=== PATIENT | male | born 1965 | race Caucasian/White ===

== ENCOUNTER → 2016-11-23 | Day surgery (SDC) | payer BC ==
[2016-11-08 15:22] VITALS: Ht 182.9 cm; Wt 129.9 kg
--- NOTE | 2016-11-08 15:57 | PAT Medication Instructions ---
Service Date Nov 08, 2016. Current Home Medication List Lisinopril (Zestril), 20 MG PO QPM Naproxen (Aleve), 440 MG PO PRN Simvastatin (Zocor), 20 MG PO QPM Medication Instructions For Your Scheduled Surgery - Check with surgeon for instructions: Naproxen (Aleve), 440 MG PO PRN - Hold the following medications as scheduled the night before surgery: Lisinopril (Zestril), 20 MG PO QPM - Take the following medications as scheduled the night before surgery: Simvastatin (Zocor), 20 MG PO QPM If you have any questions please call us at [phone] (Kassidy López PA-C) or [phone] or [phone]
[2016-11-08 16:27] LABS: HEMATOCRIT 43.6 % (42-52); MEAN CELL VOLUME 86.7 fL (80-100); MEAN CORPUSCULAR HEMOGLOBIN 30.4 pg (25-34); MEAN CORPUSCULAR HGB CONC 35.1 g/dl (32-36); MEAN PLATELET VOLUME 9.4 fL (7.4-10.4); PLATELET COUNT 223 K/uL (130-400); RED BLOOD COUNT 5.03 M/uL (4.7-6.1); WHITE BLOOD COUNT 6.13 K/uL (4.8-10.8)
--- NOTE | 2016-11-08 16:51 | DIAGNOSTIC IMAGING REPORT ---
CHEST PREADMISSION(PA/LAT) HISTORY: Preop. COMPARISON: None. FINDINGS: There are low lung volumes. The heart is normal in size. The lungs are clear. No pleural effusions. No pneumothorax. IMPRESSION: No acute process. Electronically signed by: Kishor Esteban M.D. 11/08/2016 4:49 PM Dictated Date/Time: 11/08/2016 4:47 PM
[2016-11-08 16:52] LABS: BUN/CREATININE RATIO 24.3 (10-20); CALCIUM 8.8 mg/dl (8.5-10.1); CREATININE 0.95 mg/dl (0.60-1.40); POTASSIUM 4.4 mmol/L (3.5-5.1)
[2016-11-16 17:44] LABS: BUN/CREATININE RATIO 24.3 (10-20); CALCIUM 8.9 mg/dl (8.5-10.1); CREATININE 1.1 mg/dl (0.60-1.40)
[~2016-11-23] VITALS: Ht 182.9 cm; Wt 129.9 kg
[~2016-11-23] MED LIST: ATROPINE SULFATE 0.1 MG/ML 5ML SYR IV PRN; CIPROFLOXACIN 400MG / D5W IV SCH; DEXAMETHASONE SOD INJ 4 MG/ML VIAL IV PRN; DEXAMETHASONE SOD INJ 4 MG/ML VIAL ONE; EpHEDrine SULFATE INJ 50 MG/ML AMP IV PRN; FENTANYL CITRATE INJ 50 MCG/1 ML 2 ML VIAL IV PRN; FENTANYL CITRATE INJ 50 MCG/1 ML 2 ML VIAL ONE; HYDR-5688 PO; KETOROLAC TROMETHAMINE 30 MG/ML VIAL IV. PRN; LABETALOL HCL IV 5 MG/ML 20ML IV PRN; LACTATED RINGER'S 1000ML 1,000 ML IV SCH; LIDOCAINE HCL 2% 2 ML VIAL (20MG/ML) ONE; LISI-725 PO; METOCLOPRAMIDE HCL INJ 5 MG/ML 2 ML VIAL IV PRN; MoRPHine SULFATE 10 MG/ML CARP/VIAL IV PRN; NAPR1TAB9 PO; ONDANSETRON INJ 2 MG/ML 2 ML VIAL IV PRN; ONDANSETRON INJ 2 MG/ML 2 ML VIAL ONE; OXYCODONE/ACETAMINOPHEN 5-325 TAB PO PRN; PHENYLEPHRINE 100MCG/ML 5ML SYR IV PRN; PROPOFOL IV EMULSION 10 MG/ML 20 ML VIAL IV ONE; SIMV20TA2 PO; SODIUM CHLORIDE 0.9% 1000ML 1,000 ML IV SCH
--- NOTE | 2016-11-23 07:46 | History & Physical Bridge Note ---
H&P Re-Evaluation Bridge Note: I have examined the patient, reviewed the History & Physical and in the interval since the performance of the History & Physical I have noted the following changes of clinical significance: No changes noted
--- NOTE | 2016-11-23 08:43 | Discharge Instructions-SurgCtr ---
Discharge Instructions Visit Reason for Visit: Stones Discharge Discharge Diagnosis / Problem: treat kidney stones Discharge Goals Goal(s): Decrease discomfort, Improve function Medications Stopped Medications Name(s): Pt. was told not to take a.m. meds. Activity Recommendations Activity Limitations: resume your previous activity Lifting Limitations: none Exercise/Sports Limitations: none May Resume Sexual Activity: when tolerated Shower/Bathe: no limitations Driving or Machine Use: no limitations (as long as you are off of pain medications) Anesthesia . Post Anesthesia Instructions: If you have had General Anesthesia or IV Sedation: * Do not drive today. * Resume driving when surgeon permits. * Do not make important decisions or sign legal documents today. * Call surgeon for: 1. Temperature elevations greater than 101 degrees F. 2. Uncontrollable pain. 3. Excessive bleeding. 4. Persistent nausea and vomiting. 5. Medication intolerance (nausea, vomiting or rash). * For nausea and vomiting use only clear liquids such as: tea, soda, bouillon until nausea subsides, then gradually increase diet as tolerated. * If you have any concerns or questions, call your surgeon's office. If physician is unavailable and it is an emergency, call 911 or go to the nearest emergency room. . Diet Recommendations Home Diet: no limitations Pending Studies Studies pending at discharge: no Medical Emergencies . Who to Call and When: Medical Emergencies: If at any time you feel your situation is an emergency, please call 911 immediately. . Non-Emergent Contact Non-Emergency issues call your: Urologist Call Non-Emergent contact if: you have a fever, temperature is above 101.5, your pain is not controlled, your pain is worsening . . "Provider Documentation" section prepared by Shreyas Tamayo.
--- NOTE | 2016-11-23 09:19 | [facility] Post Operative Brief Note ---
Immediate Operative Summary Operative Date Nov 23, 2016. Pre-Operative Diagnosis Right Renal Calculi Post-Operative Diagnosis Same Procedure(s) Performed Right Extracorporeal Shock Wave Lithotripsy Surgeon Dr. Keith Dillard Dye Winch Operator Surgeon(s) none Estimated Blood Loss 0 mL Findings Right renal stone - appeared to fragment nicely Specimens none Drains none Anesthesia gen Complication(s) None Disposition Recovery Room / PACU (stable)
[2016-11-23 10:00] VITALS: TEMP 36.5
--- NOTE | 2016-11-23 10:30 | Anesthesia Progress Nt - [facility] ---
Anesthesia Post Op Note Date & Time Nov 23, 2016 at 10:31 Vital Signs Pain Intensity: 0 Vital Signs Past 12 Hours Date Time Temp Pulse Resp B/P Pulse Ox O2 Delivery O2 Flow Rate FiO2 11/23/16 10:00 36.5 49 16 143/83 96 Room Air 11/23/16 09:49 49 16 97 11/23/16 09:49 50 16 11/23/16 09:48 36.6 48 16 138/89 100 11/23/16 09:48 36.6 49 16 151/86 96 Room Air 11/23/16 09:35 54 16 100 11/23/16 09:35 54 16 11/23/16 09:33 156/89 11/23/16 09:30 47 16 100 11/23/16 09:30 47 16 11/23/16 09:29 36.2 55 16 139/81 98 Mask 11/23/16 09:29 48 14 11/23/16 09:29 48 14 100 11/23/16 06:28 36.6 52 16 146/82 95 Room Air Notes Mental Status: alert / awake / arousable, participated in evaluation Pt Amnestic to Procedure: Yes Nausea / Vomiting: adequately controlled Pain: adequately controlled Airway Patency, RR, SpO2: stable & adequate BP & HR: stable & adequate Hydration State: stable & adequate Anesthetic Complications: no major complications apparent
[2016-11-23 10:34] VITALS: BP 148/86; PULSE 51; O2SAT 100
--- NOTE | 2016-11-23 16:06 | OPERATIVE REPORT ---
DATE OF OPERATION: 11/23/2016 PREOPERATIVE DIAGNOSIS: Right renal calculus. POSTOPERATIVE DIAGNOSIS: Right renal calculus. PROCEDURE PERFORMED: Right extracorporeal shockwave lithotripsy. SURGEON: Dr. Haider Dillard. ANESTHESIA: General. ESTIMATED BLOOD LOSS: 0. URINE OUTPUT: Not recorded. SPECIMENS: None. DRAINS: None. DESCRIPTION OF THE PROCEDURE: Geovani Alex was identified in the preoperative holding area. Appropriate informed consents were reviewed and completed and the patient was transported to the operating suite. Upon arrival, the patient received appropriate preoperative antibiotics in the form of ciprofloxacin. Adequate general anesthesia was achieved and the stone was localized in the right mid pole. Lithotripsy was then commenced with a total of 2500 shocks delivered to the stone. Further details can be found on the [place] [facility] Management Information Sheet. At the conclusion of the case, the patient was extubated and taken to the PACU in stable condition. I attest to the content of the Intraoperative Record and any orders documented therein. Any exceptio ns are noted below.
== END | disposition home or self-care (01) ==
LOC: X.SURG 05:59
PROVIDERS: ATTEND Urology
DX: N20.0 Calculus of kidney (principal); N40.0 Benign prostatic hyperplasia without lower urinary tract symptoms; E78.5 Hyperlipidemia, unspecified; R10.9 Unspecified abdominal pain

== ENCOUNTER → 2016-11-23 | Outpatient (CLI) | payer BC ==
[~2016-11-23] MED LIST changes: -ATROPINE SULFATE 0.1 MG/ML 5ML SYR IV PRN; -CIPROFLOXACIN 400MG / D5W IV SCH; -DEXAMETHASONE SOD INJ 4 MG/ML VIAL IV PRN; -DEXAMETHASONE SOD INJ 4 MG/ML VIAL ONE; -EpHEDrine SULFATE INJ 50 MG/ML AMP IV PRN; -FENTANYL CITRATE INJ 50 MCG/1 ML 2 ML VIAL IV PRN; -FENTANYL CITRATE INJ 50 MCG/1 ML 2 ML VIAL ONE; -KETOROLAC TROMETHAMINE 30 MG/ML VIAL IV. PRN; -LABETALOL HCL IV 5 MG/ML 20ML IV PRN; -LACTATED RINGER'S 1000ML 1,000 ML IV SCH; -LIDOCAINE HCL 2% 2 ML VIAL (20MG/ML) ONE; -METOCLOPRAMIDE HCL INJ 5 MG/ML 2 ML VIAL IV PRN; -MoRPHine SULFATE 10 MG/ML CARP/VIAL IV PRN; -ONDANSETRON INJ 2 MG/ML 2 ML VIAL IV PRN; -ONDANSETRON INJ 2 MG/ML 2 ML VIAL ONE; -OXYCODONE/ACETAMINOPHEN 5-325 TAB PO PRN; -PHENYLEPHRINE 100MCG/ML 5ML SYR IV PRN; -PROPOFOL IV EMULSION 10 MG/ML 20 ML VIAL IV ONE; -SODIUM CHLORIDE 0.9% 1000ML 1,000 ML IV SCH
--- NOTE | 2016-11-23 07:21 | DIAGNOSTIC IMAGING REPORT ---
KUB CLINICAL HISTORY: Right-sided nephrolithiasis. COMPARISON STUDY: KUB October 23, 2016. FINDINGS: A 5 mm calculus within the mid to lower pole the right kidney is unchanged. No ureteral calculi are identified. Bowel gas pattern is normal. IMPRESSION: Stable 5 mm right renal calculus. No ureteral calculi identified. Electronically signed by: Song Lewis M.D. 11/23/2016 7:20 AM Dictated Date/Time: 11/23/2016 7:19 AM
== END | disposition home or self-care (01) ==
LOC: C.RAD 05:32
PROVIDERS: ATTEND Urology
DX: N20.0 Calculus of kidney (principal)

== ENCOUNTER → 2016-12-10 | Outpatient (CLI) | payer BC ==
--- NOTE | 2016-12-10 14:37 | DIAGNOSTIC IMAGING REPORT ---
KUB HISTORY: N20.0 Nephrolithiasis BE DONE EITHER THE NIGHT BEFORE OR MORNING COMPARISON: KUB 11/23/2016. FINDINGS: The bowel gas pattern is unremarkable. There are no dilated loops of small bowel to suggest an obstruction. There appears to be fragmentation of the dominant stone within the lower pole the right kidney. The largest fragment measures 3 mm. No left renal or ureteral calculi identified. No bladder stones. No pneumoperitoneum or pneumatosis. IMPRESSION: 1. Interval fragmentation of the dominant stone within the lower pole of the right kidney. 2. No ureteral calculi. No left renal calculi. Electronically signed by: Kishor Esteban M.D. 12/10/2016 2:36 PM Dictated Date/Time: 12/10/2016 2:35 PM
== END | disposition home or self-care (01) ==
LOC: C.RAD 13:39
PROVIDERS: ATTEND Urology
DX: N20.0 Calculus of kidney (principal)

== ENCOUNTER → 2017-12-21 | Outpatient (CLI) | payer BC ==
[~2017-12-21] MED LIST changes: -HYDR-5688 PO
[2017-12-21 08:22] LABS: ALBUMIN 3.7 gm/dl (3.4-5.0); ALT/SGPT 27 U/L (12-78); BLOOD UREA NITROGEN 19 mg/dl (7-18); CALCIUM 8.5 mg/dl (8.5-10.1); CARBON DIOXIDE 31 mmol/L (21-32); CHOLESTEROL 162 mg/dl (0-200); CREATININE 0.93 mg/dl (0.60-1.40); GLUCOSE 83 mg/dl (70-99); POTASSIUM 4.2 mmol/L (3.5-5.1); SODIUM 140 mmol/L (136-145)
[2017-12-21 08:25] LABS: ALKALINE PHOSPHATASE 77 U/L (45-117); AST/SGOT 18 U/L (15-37); LDL CHOLESTEROL CALCULATED 91 mg/dl; TOTAL PROTEIN 7.3 gm/dl (6.4-8.2)
== END | disposition home or self-care (01) ==
LOC: C.LAB 06:54
PROVIDERS: ATTEND Nurse Practitioner Family
DX: E78.5 Hyperlipidemia, unspecified (principal); I10 Essential (primary) hypertension

== ENCOUNTER 2022-10-31 06:22 | Observation (INO) ==
--- NOTE | 2022-10-16 15:59 | PAT Medication Instructions ---
Medication Instructions Date of Service October 16, 2022 Home Medications Medication Instructions Recorded lisinopril 20 mg tablet 40 mg PO HS #180 tabs 09/27/22 omeprazole 20 mg capsule,delayed 20 mg PO DAILY #90 caps 09/27/22 release simvastatin 20 mg tablet 20 mg PO HS #90 tabs 09/27/22 lisinopril 20 mg tablet 40 mg PO HS omeprazole 20 mg capsule,delayed release 20 mg PO DAILY simvastatin 20 mg tablet 20 mg PO HS celecoxib 200 mg capsule (Celebrex) 200 mg PO BID Continue as directed omeprazole 20 mg capsule,delayed release 20 mg PO DAILY ASK your surgeon for instructions celecoxib 200 mg capsule (Celebrex) 200 mg PO BID Take evening before surgery lisinopril 20 mg tablet 40 mg PO HS simvastatin 20 mg tablet 20 mg PO HS Other Notes NOTHING TO EAT OR DRINK AFTER MIDNIGHT. If you have any questions please call us at [phone] or [phone] or [phone] or [phone]
--- NOTE | 2022-10-18 14:38 | Anesthesiology Consultation ---
Date of Service October 18, 2022 Assessment & Plan (1) Encounter for pre-operative examination: - Case discussed in detail with Dr. Vega who advised relaying EKG changes to cardiology and requesting updated echocardiogram to further assess severity of aortic stenosis as this may impact anesthesia plan, specifically if pt is acceptable to receive spinal block. Optimization form sent to cardiology office, awaiting response. He advised otherwise nothing further needed re: evaluation, testing or intervention including from standpoint of subglottic stenosis and symptoms. - cardiology 10/01/22: "...preoperative evaluation prior to right total knee replacement planned for 10/2022, history of a baseline abnormal EKG, negative stress echo for ischemia 12/2011, and known mild aortic stenosis by echo in 2019 with normal LV function...history of a renal artery stent, history of restenosis requiring laser therapy...can proceed with surgery...believe his risk of cardiac complications is in the range of 1-2%. This includes heart attack, dying from cardiac causes, arrhythmias and congestive heart failure...can do more than 4 METs..murmur of aortic stenosis sounds moderate...can proceed with surgery with moderate aortic stenosis...recommend an echo just for completeness sake..." Outpatient joint assessment: Patient is currently scheduled for inpatient pathway. Per discussion with Dr. Vega, if re-evaluated pending system levels during current pandemic/surgeon requests outpatient pathway, patient is not acceptable candidate for outpatient joint program from anesthesia standpoint. Chart Review Chart Review: Pending: Refer to Additional Notes / Consult section and Patient seen in Pre Admission Testing Teaching & Discussion Pre-Anesthesia Teaching/Discussion Notes: Instructed NPO after midnight before surgery, except medications with 15 cc of water. Medication instructions provided according to the PAT guidelines. History Surgery Operation Date: 10/31/22 07:00 Proposed Procedures p Right Total Knee Arthroplasty - Jakob Robert MD Height/Weight Height: 6 ft Weight: 130.635 kg Allergies Allergy/AdvReac Type Severity Reaction Status Date / Time No Known Drug Allergies Allergy Verified 10/16/22 14:29 Medications Home Medications Medication Instructions Recorded Confirmed Last Taken lisinopril 20 mg tablet 40 mg PO HS #180 tabs 09/27/22 10/16/22 Unknown omeprazole 20 mg capsule,delayed 20 mg PO DAILY #90 caps 09/27/22 10/16/22 Unknown release simvastatin 20 mg tablet 20 mg PO HS #90 tabs 09/27/22 10/16/22 Unknown celecoxib 200 mg capsule (Celebrex) 200 mg PO BID 10/16/22 10/16/22 Unknown Past Medical History Medical History (Updated 10/18/22 @ 15:29 by Mary Langford PA-C) GERD (gastroesophageal reflux disease) he reports breakthrough sensation of dysphagia Hyperlipidemia Hypertension controlled, stable per pt Mild aortic stenosis per 04/2020 echo-considered to be moderate per cardio records SHOBHA (obstructive sleep apnea) CPAP-intermittently compliant Pain left shoulder, "pinched nerve", taking celebrex Pulmonary hypertension mild Subglottic stenosis [facility] [place] E[facility], one appt per pt Patient denies h/o stroke, seizures, heart attack, heart failure, DM, blood clots or blood transfusions. Exercise / Class Metabolic Activity II 4-5 Yardwork/Stairs/Walk up hill (denies CP or SOB with 1 FOS) Past Family History Family History Father Hypertension Cancer Other No family history of adverse response to anesthesia No family history of bleeding disorder Denies family history of Ovarian cancer Prostate cancer Myocardial infarction Breast cancer Colorectal cancer Past Surgical History Surgical History History of lithotripsy Right ESWL: 11/23/16: LMA#[address] [facility] [place] (wt was 129.9kg at time) History of right knee surgery x2 History of shoulder surgery R arthroscopy 06/14/20 LMA#5 + PNB. History of urologic surgery surgery on ureter was strectched Hx of colonoscopy Past Anesthesia History No Hx of Anesthesia Complications and No Family Hx of Anesthesia Complications History of PONV No Hx of PONV and No Hx of Motion Sickness Social History Smoking Status: Never smoker Do You Dip or Chew Tobacco: No Hx Alcohol Use: No Hx Substance Use: No substance use type: does not use Review of Systems Patient denies chest pain, shortness of breath, dyspnea on exertion, dizziness, lightheadedness, lethargy, presyncope, headache, new pain, nausea, vomiting, fever, chills, cough, wheezing, or palpitations. Pt states feels at baseline/as usual today. Physical Exam Vital Signs Vitals BP 141/82 P 89 TEMP 98 SP02 94% on RA RESP 18 Physical Long lara Full cervical extension range of motion without pain TMD 3.5 finger breadths Mallampati Score 2 Lungs: normal respiratory effort. Clear throughout to auscultation, no adventitious breath sounds Cardiac: regular rate and rhythm, no murmurs noted Carotid arteries: negative bruit bilat Lab Results Anesthesia Preop Results Results Anesthesia Widget: WBC 4.88 K/ul (4.8-10.8) 10/18/22 Hgb 15.4 g/dl (14.0-18.0) 10/18/22 Hct 45.8 % (40.1-51.0) 10/18/22 Plt 219 K/uL (130-400) 10/18/22 Na 140 mmol/L (136-145) 09/27/22 K 4.1 mmol/L (3.5-5.1) 09/27/22 Cl 107 mmol/L (98-107) 09/27/22 CO2 27 mmol/L (21-32) 09/27/22 BUN 26 mg/dl (6-23) H 09/27/22 Creat 0.83 mg/dl (0.6-1.4) 09/27/22 Glucose Level 105 mg/dl (70-99(Fasting)) H 09/27/22 PT 11.4 Seconds (9.0-12.0) 10/18/22 PTT 28.5 Seconds (21.0-31.0) 10/18/22 INR 1.1 (0.9-1.1) 10/18/22 HA1c 5.7 % (4.5-5.6) H 09/27/22 Urine Color Yellow 10/18/22 Urine Appearance Clear (Clear) 10/18/22 Urine pH 6.0 (4.5-7.5) 10/18/22 Urine Specific [place] 1.019 (1.000-1.030) 10/18/22 Urine Protein Negative (Negative) 10/18/22 Urine Glucose (UA) Negative (Negative) 10/18/22 Urine Ketones Negative (Negative) 10/18/22 Urine Blood Negative (Negative) 10/18/22 Urine Nitrite Negative (Negative) 10/18/22 Urine Bilirubin Negative (Negative) 10/18/22 Urine Urobilinogen Negative (Negative) 10/18/22 Urine Leukocyte Esterase Negative (Negative) 10/18/22 Blood Type O Negative 10/18/22 Antibody Screen NEGATIVE 10/18/22 Testing Electrocardiogram Date: 10/01/22 NSR, rate 61 bpm Incomplete RBBB Chest X-Ray Date: 10/18/22 No lines and tubes are seen. Calcified aortic knob is seen. The lungs are clear. No evidence of pleural effusion or pneumothorax. IMPRESSION: No acute chest disease. Echocardiogram Date: 05/05/20 EF 60% No LV wall motion abnormalities Type 1 diastolic dysfunction Mild aortic stenosis Mild pulmonary HTN COVID-19 Risk Screen Screening Information COVID-19 Screen Date: 10/18/22 Exposure 21 Days Family/Household +COVID Last 21 Days: No Exposure 10 Days Any COVID Exposure Last 10 Days: No Symptoms Last 10 Days Experienced COVID Sx Last 10 Days: No + COVID 0-90 Days COVID + in Last 0-90 Days: No
[~2022-10-31 06:22] MED LIST changes: -LISI-725 PO; +LR 500ML BOLUS, THEN 15ML/HR IV SCH; +LR 60ML/HR IV SCH; -NAPR1TAB9 PO; +ROPIVACAINE 0.5% HCL/PF 150 MG, BUPIVACAINE 0.75% MPF 20 ML, EPINEPHrine 0.15 MG, Ketor... INFIL SCH; -SIMV20TA2 PO; +TRANEXAMIC ACID 1,000 MG **IV Pre-op IV SCH
[2022-10-31] MEDS ORDERED: EPINEPHrine INJ 1 MG/ML AMP ONE (06:34)
[2022-10-31] MEDS ORDERED: BUPIVACAINE 0.25% 30 ML VIAL ONE (06:35)
[2022-10-31] MEDS ORDERED: DEXAMETHASONE SOD INJ 4 MG/ML VIAL ONE (06:35)
[2022-10-31] MEDS ORDERED: BUPIVACAINE 0.5 % 5 MG/1 ML PF 10ML VIAL ONE (06:35)
--- NOTE | 2022-10-31 06:37 | History & Physical Bridge Note ---
Date of Service October 31, 2022 History & Physical Bridge Note I have examined the patient, reviewed the History & Physical and in the interval since the performance of the History & Physical I have noted the following changes of clinical significance: consent obtained /site verified/no changes noted
[2022-10-31] MEDS ORDERED: fentaNYL citrate 100 MCG/2 ML VIAL ONE (07:35)
[2022-10-31] MEDS ORDERED: MIDAZOLAM HCL 1 MG/ML 2ML VIAL ONE ×2 (07:35→09:23)
[2022-10-31] MEDS ORDERED: fentaNYL citrate 100 MCG/2 ML VIAL IV PRN (07:49)
[2022-10-31] MEDS ORDERED: ATROPINE SULFATE 0.1 MG/ML 10ML SYR IV PRN (07:49)
[2022-10-31] MEDS ORDERED: PROMETHAZINE HCL 6.25 MG in SODIUM CHLORIDE 0.9% 50 ML IV PRN (07:49)
[2022-10-31] MEDS ORDERED: ONDANSETRON INJ 2 MG/ML 2 ML VIAL IV PRN ×2 (07:49→12:05)
[2022-10-31] MEDS ORDERED: ePHEDrine sulfate 50 MG/ML AMP IV PRN (07:49)
[2022-10-31] MEDS ORDERED: ORTHO JOINT ANESTHETIC ONE (08:58)
[2022-10-31] MEDS ORDERED: KETAMINE 50 MG/5 ML SYRINGE ONE (09:24)
--- NOTE | 2022-10-31 09:32 | Discharge Summary (DS) ---
DATE OF ADMISSION: 10/31/2022. DATE OF POTENTIAL DISCHARGE: 11/01/2022. CHIEF COMPLAINT: Right knee pain. HISTORY OF PRESENT ILLNESS: A 57-year-old male who presents for total knee replacement on the right. 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 At this point in time, he is here for definitive total knee repla cement. PAST MEDICAL HISTORY: Remarkable for cholesterol, hypertension, heart murmur, kidney stones, rheumat oid arthritis, osteoarthritis, GERD, obesity, questionable sleep apnea. PAST SURGICAL HISTORY: Remarkable for Tomasz osteotomy, knee scopes, kidney stent placement, shou lder arthroscopy and cuff repair. FAMILY HISTORY: Remarkable for heart disease, hypertension, elevated cholesterol. ALLERGIES: None. SOCIAL HISTORY: Reveals he works at [employer]. He works on the [employer] system for the last 3 years . No tobacco use, no alcohol use. He is single. PREADMISSION MEDICATIONS: Include 40 mg daily, omeprazole 40 mg daily, simvastatin 20 mg daily at bedtime. REVIEW OF SYSTEMS: Noncontributory. ASSESSMENT: Status post right total knee replacement. At this point in time, continue with postopera tive care pathway. Discharge to home with home services. Job ID: [id number]
[2022-10-31] MEDS ORDERED: ePHEDrine sulfate 50 MG/ML SYR ONE (09:49)
[2022-10-31] MEDS ORDERED: ONDANSETRON INJ 2 MG/ML 2 ML VIAL ONE (09:49)
[2022-10-31] MEDS ORDERED: PROPOFOL IV EMULSION 10 MG/ML 20 ML VIAL IV ONE (09:49)
[2022-10-31] MEDS ORDERED: PHENYLEPHRINE 100MCG/ML 5ML SYR ONE (09:49)
--- NOTE | 2022-10-31 11:08 | Post Operative Brief Note ---
Immediate Post Op Note v1 Date of Surgery October 31, 2022 Pre & Post Diagnosis Operation Date: 10/31/22 08:50 Pre-Op Diagnosis: Right Knee Degenerative Joint Disease Post-Op Diagnosis: Right Knee Degenerative Joint Disease I identified the patient and participated in the time-out.: Yes Procedure Operation Date: 10/31/22 08:50 Actual Procedures p Right Total Knee Arthroplasty, Patella Hardware Removal(Right) - Jakob Robert MD Surgeon Jakob Robert MD Court Security Officer Susan/Latonia Estimated Blood Loss 50 Findings Consistent with Post-Op Diagnosis patellar harware required removal added 15 minutes to the case
--- NOTE | 2022-10-31 11:18 | Operative Report ---
Post Operative Report Pre & Post Diagnosis Operation Date: 10/31/22 08:50 Pre-Op Diagnosis: Right Knee Degenerative Joint Disease Post-Op Diagnosis: Right Knee Degenerative Joint Disease I identified the patient and participated in the time-out.: Yes Procedure Operation Date: 10/31/22 08:50 Actual Procedures p Right Total Knee Arthroplasty, Patella Hardware Removal(Right) - Jakob Robert MD Surgeon PEPE Robert MD Logging Specialist Susan/Latonia PHILLIPS Estimated Blood Loss 50 Findings Consistent with Post-Op Diagnosis see operative report Specimens see operative report Drains none Complications none Disposition Accompanied Patient To Recovery: Yes Indications This 57 year old male presented to the office with complaints of persisting right knee pain. He had tried conservative care measures without improvement. He elected to proceed with surgical intervention after being educated about potential risks and outcomes. Preoperative imaging was obtained. Description of Procedure Patient was administered a spinal anesthetic and then taken to the operating room where he was given sedation. He was prepped and draped in the usual sterile fashion. Please see Dr. Robert's operative report for specifics of the procedure. I was present for the entire case from initial patient positioning through final wound closure. Assistance was provided in tissue retraction, hemostasis, trial implant placement, final implant placement, and final wound closure. Patient was taken to the recovery room in satisfactory condition. I attest to the content of the Intraoperative Record and any orders documented therein. Any exceptions are noted below.
--- NOTE | 2022-10-31 11:46 | Progress Notes ---
SUBJECTIVE: Postop check status post right total knee replacement, removal of patellar hardware. At this point in time, he is doing well. He is awake, alert. Denies chest pain, shortness of breath, fever, chills, nausea, vomiting or headache. OBJECTIVE: VITAL SIGNS: Stable. He is afebrile. Neurovascular check reveals limitations based on spinal which is starting to wear off. Wound dressin g clean, dry and intact. Postop x-rays look excellent. ASSESSMENT: Doing well. PLAN: Continue postoperative care pathway. Mobilize MERCEDES and start range of motion 0-90 MERCEDES. Foll ow up in a.m. for discharge tomorrow. Job ID: [id number]
--- NOTE | 2022-10-31 11:49 | Operative Report (OR) ---
DATE OF PROCEDURE: 10/31/2022. SURGEON: Jakob Robert MD. FRUIT HARVESTER MACHINE OPERATOR: Susan. SECOND FRUIT HARVESTER MACHINE OPERATOR: Karan Lincoln PA-C. PREOPERATIVE DIAGNOSIS: Advanced osteoarthritis, tricompartmental, right knee, with history of vicente lofemoral instability remote. POSTOPERATIVE DIAGNOSIS: Advanced osteoarthritis, right knee, with previous history of patellofemora l instability and retained hardware. OPERATION PERFORMED: 1. Cemented right total knee replacement. 2. Removal of deep hardware patella. PERIOPERATIVE SITUATION: Medically cleared male with intractable right knee pain, has been followed for decades. Had chronically subluxated/dislocated patella, underwent extensor mechanism realignment in 1997 and has done well until the last couple of years. At this point in time, his x-rays were en d-stage arthritic disease, wants to proceed with right total knee replacement. DESCRIPTION OF PROCEDURE: The patient was appropriately identified, site verified, consent verified. Antibiotics were confirmed as being given. The right lower extremity was prepped and draped in the usual routine fashion. There was no patellofemoral instability. The old incision was used at its p roximal half and then extended proximally. A parapatellar arthrotomy was performed. Synovectomy com pleted. Osteophytes were extensive. They were removed. There was grade IV disease through the enti re patellofemoral joint, lateral compartment was grade III+, medial compartment was grade II. Once ev erything was released appropriately, the knee was flexed. Cruciates resected. Tibia was subluxated. Meniscal remnants were resected. Distal femur was then cut. Proximal tibia was then cut. The dis biju femur was 14 mm, proximal tibia was 4 mm, the extension gap was excellent. The extension gap was checked, it was excellent. The femur was then sized to a 4 narrow and appropri ate cutting block applied and anterior, posterior condylar chamfer cuts were made. Flexion gap was e xcellent. The box cut was then made. The capsule was injected with Orthomix. The trial implant was then placed. The tibia was subluxated, broached and reamed to a size 4. Once that was done, the 10 spacer fit well. There was excellent motion, excellent tracking of the patella. The patella was th en everted and then resected, it was thin patella based on its chronicity of subluxation, was resecte d leaving roughly 14 mm. Once the cut was made, the seating holes were made and the most proximal me dial seating hole ran into that deep hardware in the patella. This required burring to remove it out . It took an extra 15 minutes to the case. Once that was all done, the patellar trial button fit we ll and tracked well. All trial elements were then removed after Orthomix was injected all about the knee. The wound was irrigated with Pulsavac, Betadine and then the permanent cemented into position tibia, femur, and patella in that order, at 12 minutes, the tourniquet deflated at 14 minutes. The kn ee subluxated. The trial implant removed. Inspection required no cement removal. The wound was irr igated with Pulsavac and Betadine and the permanent liner seated, knee reduced and closed at 40 degre es of flexion with #2 Vicryl, 2-0 Vicryl and stainless steel clips. Appropriate dressing applied. T he patient was transferred to recovery room in satisfactory condition, having tolerated the procedure well. SUMMARY OF IMPLANTS: Size 4 narrow femur, size 4 tibial rotating platform tray, size 4 spacer, 10 mm thick posterior cruciate substituting oval dome, 3-peg patella, size 3. Two bags of Palacos G cemen t. ESTIMATED BLOOD LOSS: 50 mL CRYSTALLOID: Per anesthesia. DVT prophylaxis per protocol. Job ID: [id number]
--- NOTE | 2022-10-31 11:57 | XRay Report ---
TWO VIEWS RIGHT KNEE CLINICAL HISTORY: Postoperative examination. FINDINGS: AP and crosstable lateral portable views of the right knee are compared to study dated 09/28. A right knee arthroplasty is in near anatomic alignment. There has been undersurface remodeli ng of the patella. No acute fracture is seen. There are expected postoperative changes around the kne e including skin clips, soft tissue edema, and subcutaneous gas. 2 cortical screws in the proximal ti eunice are unchanged. IMPRESSION: Expected postoperative changes status post right knee arthroplasty. No acute fracture is seen. ACT 112: Negative or not required by law. Electronically signed by: Zia Larsen M.D. 10/31/2022 11:56 AM
[2022-10-31] MEDS ORDERED: TAMSULOSIN HCL 0.4 MG CAP PO PRN (12:05)
[2022-10-31] MEDS ORDERED: ALUMINUM/MAGNESIUM SUSP 30 ML UDC PO PRN (12:05)
[2022-10-31] MEDS ORDERED: SODIUM CHLORIDE 0.9% 1000ML 1,000 ML IV SCH (12:05)
[2022-10-31] MEDS ORDERED: VANCOMYCIN CONSULT ACTIVE PRN (12:05)
[2022-10-31] MEDS ORDERED: NALOXONE HCL 0.4 MG/1 ML VIAL/CARP IV PRN (12:05)
[2022-10-31] MEDS ORDERED: bisacodyL 10 MG SUPP PR PRN (12:05)
[2022-10-31] MEDS ORDERED: diphenhydrAMINE 50 MG/ML VIAL IV PRN (12:05)
[2022-10-31] MEDS ORDERED: oxyCODONE HCL IR 5 MG TAB (IMMEDIATE RELEASE) PO PRN (12:05)
[2022-10-31] MEDS ORDERED: MAGNESIUM HYDROXIDE SUSP 30 ML UDC PO PRN (12:05)
[2022-10-31] MEDS ORDERED: HYDROmorphone INJ 0.5 MG/0.5 ML SYR IV PRN (12:05)
[2022-10-31] MEDS ORDERED: METOCLOPRAMIDE HCL INJ 5 MG/ML 2 ML VIAL IV PRN (12:05)
[2022-10-31] MEDS ORDERED: VANCOMYCIN HCL 2,000 MG in SODIUM CHLORIDE 0.9% 500 ML IV ONE (13:00)
--- NOTE | 2022-10-31 13:38 | Anesthesiology Progress Note ---
Date of Service October 31, 2022 Anesthesia Post Procedure Vital Signs Vital Signs: Temp Pulse Pulse Resp BP Pulse Ox O2 Del Method 10/31/22 13:00 62 19 124/77 95 Room Air 10/31/22 12:45 53 L 20 123/77 96 Room Air 10/31/22 12:30 52 L 20 129/78 97 Room Air 10/31/22 12:15 52 L 20 123/71 98 Room Air 10/31/22 12:00 65 20 125/59 L 94 Room Air 10/31/22 11:45 36.4 C L 52 L 18 117/69 96 Room Air 10/31/22 11:35 53 L 18 114/74 97 Room Air 10/31/22 11:25 53 L 19 115/64 96 Room Air 10/31/22 11:16 36.0 C L 56 L 16 105/57 L 100 Oxymask 10/31/22 06:44 Room Air 10/31/22 06:44 36.7 C 54 L 20 155/79 H 98 Room Air O2 Flow Rate 10/31/22 13:00 10/31/22 12:45 10/31/22 12:30 10/31/22 12:15 10/31/22 12:00 10/31/22 11:45 10/31/22 11:35 10/31/22 11:25 10/31/22 11:16 5 10/31/22 06:44 10/31/22 06:44 Pain Intensity Right Knee: Pain Intensity: 1 Transfer of Care Handoff Completed per policy Notes Mental Status: alert / awake / arousable Patient Amnestic to Procedure: Yes Nausea / Vomiting: adequately controlled Pain: adequately controlled Airway Patency, RR, SpO2: stable & adequate BP & HR: stable & adequate Hydration State: stable & adequate Neuraxial Anesthesia: was administered and sensory block is resolving Anesthetic Complications: no major complications apparent and Pt Satisfied with anesthetic care
[2022-10-31] MEDS ORDERED: ORTHO WARFARIN NOMOGRAM SCH (14:00)
[2022-10-31] MEDS: ACETAMINOPHEN 500 MG TAB PO SCH ×2 (14:10→21:24)
[2022-10-31] MEDS: KETOROLAC 30 MG/ML VIAL IV SCH ×2 (14:10→20:43)
[2022-10-31] MEDS ORDERED: WARFARIN SOD 5 MG TAB PO SCH (16:00)
[2022-10-31] MEDS: ASCORBIC ACID 500 MG TAB PO SCH (17:24)
[2022-10-31] MEDS: FERROUS GLUCONATE 324 MG TAB PO SCH (17:24)
[2022-10-31] MEDS ORDERED: TRANEXAMIC ACID / 0.7% NACL 1,000 MG/100 ML BAG IV SCH (17:30)
[2022-10-31] MEDS: ceFAZolin 2000MG 2,000 MG/15 ML SYR IV SCH (18:11)
[2022-10-31] MEDS: DOCUSATE SODIUM 100 MG CAP PO SCH (20:50)
[2022-10-31] MEDS ORDERED: SENNA 8.6 MG TAB PO SCH (21:00)
[2022-10-31] MEDS ORDERED: SIMVASTATIN 20 MG TAB PO SCH (21:00)
[2022-10-31] MEDS ORDERED: lisinopril 40 MG TAB PO SCH (21:00)
[2022-11-01] MEDS: KETOROLAC 30 MG/ML VIAL IV SCH ×2 (01:46→09:06)
[2022-11-01] MEDS: ceFAZolin 2000MG 2,000 MG/15 ML SYR IV SCH (01:47)
[2022-11-01 05:49] LABS: Hematocrit (blood only) 38.7 % (40.1-51.0); Mean Corpuscular Hemoglobin 28.9 pg (25.0-34.0); Mean Corpuscular Hgb Conc 33.6 g/dL (32.0-36.0); Mean Platelet Volume 9.2 fL (9.4-12.4); Platelet Count 202 K/uL (130-400); RDW Coefficient of Variation 13.2 % (11.5-14.5); RDW Standard Deviation 41.6 fL (36.4-46.3)
[2022-11-01] MEDS: ACETAMINOPHEN 500 MG TAB PO SCH (06:05)
[2022-11-01 06:18] LABS: INR 1.1 (0.9-1.1); Prothrombin Time 11.6 Seconds (9.0-12.0)
[2022-11-01 06:25] LABS: BUN Creatinine Ratio 26.2 (10-20); Calcium 8.1 mg/dl (8.5-10.1); Creatinine Clr Calc Pharmacy 133.6 ml/min; Est GFR (African American) 111.9 ml/min; Est GFR (Non-African American) 96.5 ml/min; Potassium 4.1 mmol/L (3.5-5.1)
--- NOTE | 2022-11-01 06:50 | Progress Notes ---
SUBJECTIVE: Postop day #1 status post right total knee replacement. The patient is doing well, he i s comfortable. He denies any chest pain, shortness of breath, fever, chills, nausea, vomiting or hea dache. OBJECTIVE: VITAL SIGNS: Stable. He is afebrile. NEUROVASCULAR CHECK: Femoral sciatic nerve is normal. He can do a straight leg raise. ASSESSMENT AND PLAN: Advised concerning range of motion, try to get 0-90, nothing behind the knee, t ry to keep his extension to 0. Knee immobilizer for the first 48 hours and then can discontinue afte r he has good muscle control. It is only to be worn when he is up walking around, is not to be worn in bed. Coumadin dose before he leaves today, based on INR results today. Follow up in 2 weeks for abby brown. Hematocrit stable at 38.7. INR is 1.1. Everything else looks good. Discharge to home today after PT/OT. Job ID: [id number]
[2022-11-01] MEDS: FERROUS GLUCONATE 324 MG TAB PO SCH (07:30)
[2022-11-01] MEDS: ASCORBIC ACID 500 MG TAB PO SCH (07:30)
[2022-11-01] MEDS ORDERED: WARFARIN SOD 5 MG TAB PO ONE (07:39)
[2022-11-01] MEDS ORDERED: dexAMETHasone 10 MG in SYRINGE 0 ML IV SCH (08:00)
[2022-11-01] MEDS ORDERED: MULTIVITAMIN TAB PO SCH (09:00)
[2022-11-01] MEDS ORDERED: PANTOprazole 40 MG TAB PO SCH (09:00)
[2022-11-01] MEDS: DOCUSATE SODIUM 100 MG CAP PO SCH (09:06)
--- NOTE | 2022-11-01 11:08 | Orthopedic Progress Note ---
Date of Service November 01, 2022 Assessment & Plan (1) S/P total knee replacement using cement: Plan: Patient was seen in his room. His Cardozo dressing was removed. A new pressure dressing was applied. He will leave this in place until seen by home health on Saturday. Start PT/OT today. Patient would like to be discharged to home after those are completed. Order has been placed. Prescriptions were sent to his pharmacy. Written discharge instructions were provided. He will receive his Coumadin today prior to discharge. Continue using the knee immobilizer over the next 2 days. Call the office with any other concerns. Follow-up with me in the office in 2 weeks as scheduled. Admission and Anticipated Discharge Date Admission Date: October 31, 2022 Subjective This 57-year-old male is seen today in his room, for reevaluation of his right leg. He is postop day 1 from right total knee arthroplasty. He states he is doing well. He does have some soreness of the thigh. He has been out of bed. He denies any chest pain, shortness of breath, nausea, vomiting, abdominal pain, chest pain, numbness, or tingling. He would like to go home today. No other complaints. Review of Systems Review of Systems: Unchanged from yesterday. Physical Exam Physical Exam: General: Well-developed, well-nourished, middle-aged male, in no acute distress. Laying in bed. Alert and oriented. Conversive. Skin: Warm and dry with good turgor. No rashes. Patient does have a bulky postoperative dressing in place on the left leg. Upon removal, there is a mo derate amount of dried blood on the inner dressings. It is approximately the size of a silver dollar. Wound edges are well approximated. No active bleeding. Expected postoperative edema. No ecchymosis yet. Musculoskeletal: Patient has intact motor function of his ankle and toes. He is able to perform a straight leg raise without difficulty. He has nearly full extension. Flexion today to around 80 degrees. Neurologic: Gross sensation is intact across the left leg by soft touch. Peripheral pulses are 2+. Results & Data ([facility]) Vital Signs (Past 12 Hours) Vital Signs Temp Pulse Resp BP BP Pulse Ox O2 Del Method 11/01/22 10:12 36.5 C 51 L 18 129/74 133/78 98 11/01/22 08:02 36.5 C 51 L 18 129/74 98 Room Air 11/01/22 02:35 36.8 C 52 L 18 117/61 96 Room Air Laboratory Results CBC obtained today shows a white count of 13.5. H&H of 13.0 and 38.7. Platelets are 202,000. INR is 1.1. Renal panel was entirely unremarkable. Glucose stable at 131.
== END 2022-11-01 12:01 | disposition home health service (06) ==
LOC: ASU 06:22 → PACUINP 06:22 → 3E 13:40